=== PATIENT | male | born 1995 | race Caucasian/White ===

== ENCOUNTER 2022-09-17 15:57 | Emergency (ER) | payer SELFPAY ==
[~2022-09-17] VITALS: Ht 165.1 cm; Wt 72.6 kg
--- NOTE | 2022-09-17 15:57 | NUR ---
PT BIBA TO BED 7
--- NOTE | 2022-09-17 16:09 | NUR ---
27YO MALE PT BIBA HOME C/O SHARP CHEST PAIN X1HR. REPORTS ONSET AFTER TAKING 5-6 TYLENOL PM PILLS, UNKNOWN DOSAGES. STATES TAKING MEDICATION TO HELP REST " I JUST WANT TO SLEEP". DENIES SI, N/V/D, SOB, FEVER OR CHILLS. PT AAOX4, SPEAKING IN CLEAR FULL SENTENCES. AMB W/ STEADY GAIT. ON CUSTOMER RETENTION REPRESENTATIVE, HX:DENIES NKA
[2022-09-17 16:12] VITALS: BP 132/83; PULSE 119; RESP 18; TEMP 98.1; O2SAT 94
[2022-09-17] MEDS ORDERED: NACL 0.9% 1,000 ML IV ONE (16:40)
[2022-09-17 16:59] LABS: BASOPHILS % (AUTO) 0.4 % (0.0-2.0); HEMATOCRIT 48.1 % (36-52); HEMOGLOBIN 16.4 g/dL (12.0-18.0); LYMPHOCYTES % (AUTO) 8.5 % (20.5-51.1); MEAN CORPUSCULAR HEMOGLOBIN 30 pg (27-31); MEAN CORPUSCULAR HGB CONC 34 g/dL (33-37); MEAN CORPUSCULAR VOLUME 88.4 fL (80-94); MONOCYTES # (AUTO) 0.4 K/uL (0.8-1.0); MONOCYTES % (AUTO) 3.1 % (1.7-9.3); NEUTROPHILS # (AUTO) 10.2 K/uL (1.8-7.7); PLATELET COUNT (AUTO) 172 K/uL (140-450); RED BLOOD CELL COUNT(AUTO) 5.44 MIL/uL (4.20-6.10); RED CELL DISTRIBUTION WIDTH 13.9 % (11.6-13.7); WHITE BLOOD COUNT (AUTO) 11.6 K/uL (4.8-10.8)
[2022-09-17 17:31] LABS: ALBUMIN 4.5 g/dL (3.4-5.0); ANION GAP 13.7 (8-16); ASPARTATE AMINOTRANSFERASE 18 U/L (15-37); CHLORIDE 101 mmol/L (98-107); CREATININE 1.1 mg/dL (0.6-1.3); GFR ARICAN-AMERICAN 103 mL/min (>90); GLUCOSE 109 mg/dL (74-106); POTASSIUM 3.7 mmol/L (3.5-5.1); SODIUM SERUM 136 mmol/L (136-145); TOTAL BILIRUBIN 0.6 mg/dL (0.0-1.0); UREA NITROGEN, BLOOD 21 mg/dL (7-18)
[2022-09-17 17:33] LABS: SALICYLATE < 2.8 mg/dL (2.8-20.0)
[2022-09-17 17:35] LABS: ACETAMINOPHEN 93.7 ug/ml (10-30)
[2022-09-17 18:10] VITALS: O2SAT 97
[2022-09-17 18:19] LABS: BARBITURATE, URINE NEGATIVE ng/ml (NEG <=200); BENZODIAZEPINE, URINE POSITIVE ng/mL (NEG <=200); CANNABINOID, URINE NEGATIVE ng/mL (NEG <=50); COCAINE, URINE NEGATIVE ng/mL (NEG <=300); OPIATE, URINE NEGATIVE ng/mL (NEG <=2000); PHENCYCLIDINE SCREEN,URINE NEGATIVE ng/mL (NEG <=25)
[2022-09-17 18:50] VITALS: BP 128/80; PULSE 88; RESP 18; TEMP 98.1; O2SAT 96
--- NOTE | 2022-09-17 19:26 | NUR ---
REPORT GIVEN TO DAVIS DUENAS. TRANSFER OF CARE AT THIS TIME
--- NOTE | 2022-09-17 20:20 | NUR ---
Patient discharged with v/s stable. Written and verbal after care instructions given and explained. Patient verbalized understanding. Ambulatory with steady gait. All questions addressed prior to discharge. Advised to follow up with PMD.
== END 2022-09-17 18:00 | disposition home or self-care (01) ==
LOC: MED 15:57
DX: R10.13 Epigastric pain (principal); T39.1X1A Poisoning by 4-Aminophenol derivatives, accidental (unintentional), initial encounter; Y92.89 Other specified places as the place of occurrence of the external cause
CPT/HCPCS: 36415; 80053; 80305; 82550; 84484; 85025; 93005; 96360; 99291; G0480; G0482; J7030